=== PATIENT | male | born 1960 | race Hispanic/Latino ===

== ENCOUNTER 2018-04-30 14:39 | Outpatient (CLI) | payer BC ==
--- NOTE | 2018-04-30 16:01 | RAD ---
RIGHT SHOULDER FOUR VIEWS: 04/30/18 HISTORY: Right shoulder pain. FINDINGS: No comparison. Acromioclavicular and glenohumeral alignment are maintained. Smoothly marginated somewhat linear ossi fication inferior to the acromioclavicular joint on the scapular Y-view is likely related to the dege nerative changes. No acute fracture, dislocation, or aggressive osseous erosions. Mild osteophytosis. IMPRESSION: Mild degenerative changes right shoulder. No acute osseous abnormalities are demonstrated. POS: [facility]
--- NOTE | 2018-04-30 16:07 | RAD ---
RIGHT KNEE FOUR VIEWS: 04/30/18 HISTORY: Right knee pain. FINDINGS: Joint spaces are preserved. Mild osteophytosis. No acute fracture, dislocation, or aggressive osseous erosions, or fluid distention of the suprapatellar bursa. IMPRESSION: Mild degenerative changes. No acute osseous abnormalities are demonstrated. POS: [facility]
--- NOTE | 2018-04-30 16:08 | RAD ---
LEFT KNEE FOUR VIEWS: 04/30/18 HISTORY: Left knee pain. COMPARISON: 10/14/14. FINDINGS: Joint spaces are preserved. Mild tricompartmental osteophytosis. Large enthesophyte at the medial asp ect of the medial femoral condyle is unchanged in appearance. No acute fracture, dislocation, or flui d distention of the suprapatellar bursa. IMPRESSION: Chronic type findings are stable. No acute osseous abnormalities are demonstrated. POS: [facility]
== END 2018-04-30 14:40 | disposition home or self-care (01) ==
LOC: SCSRAD 14:39
PROVIDERS: ATTEND Nurse Practitioner Family
DX: M25.562 Pain in left knee (principal); M25.561 Pain in right knee; M25.511 Pain in right shoulder; M17.11 Unilateral primary osteoarthritis, right knee; M19.011 Primary osteoarthritis, right shoulder

== ENCOUNTER 2021-07-01 11:19 | Observation (INO) | payer BC ==
[2021-07-01 12:14] VITALS: BMI 37.8
[2021-07-01] MEDS ORDERED: GoLYTELY 4,000 ml Bottle PO SCH ×2 (12:15→12:30)
[2021-07-01 15:17] LABS: #Basophils 0.1 thou/uL (0.0-0.2); #Eosinphils 0.4 thou/uL (0.0-0.7); #Lymphocytes 2.6 thou/uL (1.20-3.40); #Monocytes 0.7 thou/uL (0.11-0.59); #Neutrophils 7.1 thou/uL (1.40-6.50); %Basophils 0.5 % (0.0-1.0); %Eosinophils 3.9 % (0.0-10.0); %Lymphocytes 23.7 % (21.0-51.0); %Monocytes 6.5 % (0.0-10.0); %Neutrophils 65.3 % (42.0-75.0); Hemoglobin 11.6 g/dL (14.0-18.0); Mean Corpuscular HGB CONC 34.5 g/dL (32.0-36.0); Mean Corpuscular Volume 87.1 fL (78.0-98.0); Mean Platelet Volume 8.6 fL (7.4-10.4); Platelet Count 243 thou/uL (130-400); RBC Distribution Width 12.4 % (11.5-14.5); Red Blood Cell (RBC) Count 3.86 mill/uL (4.70-6.10); White Blood Cell (WBC) Count 10.9 thou/uL (4.8-10.8)
[2021-07-01 16:13] LABS: SARS-CoV-2 NAA Rapid Test Not Detected (NotDetected)
[2021-07-01] MEDS ORDERED: PROPOFOL 200 MG/20 ML VIAL ONE (17:07)
[2021-07-01] MEDS ORDERED: Lidocaine 1% PF 5 ML VIAL ONE (17:07)
[2021-07-01 18:46] VITALS: BP 136/71; TEMP 98.5
== END 2021-07-01 18:47 | disposition home or self-care (01) ==
LOC: SURG A 11:19
PROVIDERS: ADMIT Internal Medicine Gastroenterology; ATTEND Internal Medicine Gastroenterology
PROC: 0W3P8ZZ Control Bleeding in Gastrointestinal Tract, Via Natural or Artificial Opening Endoscopic (ICD-10-PCS; principal; 2021-07-01)
DX: K91.840 Postprocedural hemorrhage of a digestive system organ or structure following a digestive system procedure (principal); K63.3 Ulcer of intestine; K57.30 Diverticulosis of large intestine without perforation or abscess without bleeding; K64.8 Other hemorrhoids; E11.9 Type 2 diabetes mellitus without complications; I10 Essential (primary) hypertension; E78.5 Hyperlipidemia, unspecified; E66.3 Overweight; Z68.37 Body mass index [BMI] 37.0-37.9, adult; Z79.82 Long term (current) use of aspirin; Z79.84 Long term (current) use of oral hypoglycemic drugs; Z79.899 Other long term (current) drug therapy; Z20.822 Contact with and (suspected) exposure to COVID-19
CPT/HCPCS: 36415; 85025; J2704; U0002